=== PATIENT | male | born 1950 | race Caucasian/White ===

== ENCOUNTER 2024-07-02 12:51 | Emergency (ER) | payer OTHER ==
[2024-07-02] MEDS ORDERED: Acetaminophen 500 MG TAB ONE (13:07)
[2024-07-02] MEDS ORDERED: cefTRIAXone (ROCEPHIN) 2 GM VIAL ONE (13:25)
[2024-07-02] MEDS ORDERED: Azithromycin 500 MG VIAL ONE (13:25)
[2024-07-02] MEDS ORDERED: Sodium Chloride 0.9% 100 ML ONE (13:25)
[2024-07-02] MEDS ORDERED: Sterile Water 10 ML ONE (13:25)
[2024-07-02] MEDS ORDERED: Sodium Chloride 0.9% 1,000 ML ONE (13:26)
[2024-07-02 14:07] LABS: Band 4 % (5-11); Eosinophils 1 % (0-10); Hematocrit 48.1 % (42.0-52.0); Hemoglobin 15.5 g/dL (14.0-18.0); Lymphocytes 15 % (21-51); MDiff Complete? YES; Mean Corpuscular HGB CONC 32.1 g/dL (32.0-36.0); Mean Corpuscular Hemoglobin 29.6 pg (27.0-31.0); Mean Platelet Volume 7.5 fL (7.4-10.4); Monocytes 5 % (0-10); Neutrophil 72 % (42-75); Platelet Adequacy Comment Appears Adequate; Platelet Count 271 10x3/uL (130-400); RBC Distribution Width 12.5 % (11.5-14.5); Red Blood Cell (RBC) Count 5.23 mill/uL (4.70-6.10); White Blood Cell (WBC) Count 17.1 10x3/uL (4.8-10.8)
[2024-07-02 14:12] LABS: ALT (SGPT) 13 U/L (8-55); AST (SGOT) 26 U/L (5-34); Albumin 3.3 g/dL (3.4-4.8); Alkaline Phosphatase 95 U/L (40-110); Anion Gap 15 mmol/L (10-20); BUN (Urea Nitrogen) 12 mg/dL (8.4-25.7); Bilirubin, Total 0.4 mg/dL (0.2-1.2); Calc. Creatinine Clearance 0 mL/min (70-130); Calcium 9.1 mg/dL (7.8-10.44); Carbon Dioxide 17 mmol/L (23-31); Chloride 109 mmol/L (98-107); Estimated GFR 65; Globulin 3.9 g/dL (2.4-3.5); Glucose 171 mg/dL (83-110); Potassium 3.7 mmol/L (3.5-5.1); Protein, Total 7.2 g/dL (5.8-8.1); Sodium 137 mmol/L (136-145)
[2024-07-02 14:13] LABS: Troponin I Less than 0.010 ng/mL (< 0.028)
== END 2024-07-02 14:51 | disposition home or self-care (01) ==
LOC: MADERS 12:51
DX: J18.9 Pneumonia, unspecified organism (principal); E11.9 Type 2 diabetes mellitus without complications; I10 Essential (primary) hypertension; E78.5 Hyperlipidemia, unspecified; Z79.899 Other long term (current) drug therapy
CPT/HCPCS: 71046; 80053; 83605; 83880; 84484; 85025; 87428; 93005; 96365; 96375; J0456; J0696; J7030